=== PATIENT | male | born 1935 | race Caucasian/White ===

== ENCOUNTER 2016-11-25 09:21 | Emergency (ER) | payer MEDICARE, OTHER ==
[~2016-11-25] VITALS: Ht 170.2 cm; Wt 84.0 kg
[~2016-11-25 09:21] MED LIST: ARTH650T6 PO; ATEN-102 PO; AZEL0.05 NASAL; BIOTCAP PO; BOSWTAB2 PO; BUFF325T PO; CHLO4TAB2 PO; CILO100T PO; CRES10TA PO; FINA5TAB77 PO; FLAXOIL4 PO; KETO2SHA5 TOP; LISI30TA44 PO; OMEG5CAP PO; OMPR20CCR PO; TAMS0.4C67 PO; VITA500015 PO; VITACAP7
[2016-11-25 09:23] VITALS: BP 182/82; PULSE 64; RESP 16; TEMP 97.7; O2SAT 98
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
[2016-11-25] MEDS ORDERED: HYDR-3533 PO (11:51)
[2016-11-25 12:14] VITALS: BP 135/67; TEMP 98.2
== END 2016-11-25 12:10 | disposition home or self-care (01) ==
LOC: NEPC 09:21
DX: S09.90XA Unspecified injury of head, initial encounter (principal); S16.1XXA Strain of muscle, fascia and tendon at neck level, initial encounter; W20.8XXA Other cause of strike by thrown, projected or falling object, initial encounter; I10 Essential (primary) hypertension; Z79.01 Long term (current) use of anticoagulants
CPT/HCPCS: 70450; 72125